=== PATIENT | female | born 1995 | race Caucasian/White ===

== ENCOUNTER 2018-01-09 20:36 | Emergency (ER) | payer OTHER ==
[2018-01-09] MEDS ORDERED: Mupirocin 2% OINT* TUBE TOPICAL ONE (22:06)
[2018-01-09] MEDS ORDERED: Cephalexin CAP* 500 MG PO ONE (22:06)
--- NOTE | 2018-01-09 22:13 | UC ---
Respiratory Complaint HPI - HPI Summary HPI Summary: 10 days of head congestion, cough, nasal drainage. No sore throat, nausea/ vomiting. No fever. Today noticed a bump on the tip of her nose with surrounding redness of the skin. Mildly tender. Not itchy. - History of Current Complaint Chief Complaint: IVANkin Stated Complaint: CONGESTION, NOSE COMPLAINT Time Seen by Provider: 01/09/18 21:54 Hx Obtained From: Patient, Family/[employer] - MOM Hx Last Menstrual Period: 2 weeks Onset/Duration: Gradual Onset, Lasting Days, Still Present Timing: Constant Severity Initially: Moderate Severity Currently: Moderate Pain Intensity: 2 Pain Scale Used: 0-10 Numeric Character: Cough: Nonproductive Aggravating Factors: Nothing Alleviating Factors: Nothing Associated Signs And Symptoms: Positive: URI, Nasal Congestion. Negative: Dyspnea, Fever, Chills - Allergies/Home Medications Allergies/Adverse Reactions: Allergies Allergy/AdvReac Type Severity Reaction Status Date / Time amoxicillin Allergy Unknown Verified 01/09/18 21:29 Reaction Details [place] And Derivatives Allergy Fever Verified 01/09/18 21:29 Home Medications: Home Medications Ibuprofen TAB* [Motrin TAB* 600 MG] 600 mg PO Q6H PRN 01/09/18 [History Confirmed 01/09/18] O C 1 tab PO QPM 01/09/18 [History Confirmed 01/09/18] PMH/Surg Hx/FS Hx/Imm Hx Previously Healthy: Yes - Surgical History Surgical History: None - Family History Known Family History: Negative: Hypertension - Social History Alcohol Use: Occasionally Substance Use Type: None Smoking Status (MU): Former Smoker Review of Systems Constitutional: Negative Skin: Rash ENT: Nasal Discharge Respiratory: Cough Cardiovascular: Negative Gastrointestinal: Negative All Other Systems Reviewed And Are Negative: Yes Physical Exam Triage Information Reviewed: Yes Appearance: Well-Appearing, No Pain Distress, Well-Nourished Vital Signs: Initial Vital Signs Temp 97.5 F 01/09/18 21:19 Pulse 60 01/09/18 21:19 Resp 22 01/09/18 21:19 BP 137/91 01/09/18 21:19 Pulse Ox 100 01/09/18 21:19 Vital Signs Reviewed: Yes Eyes: Positive: Conjunctiva Clear ENT: Positive: Hearing grossly normal, Pharynx normal, TMs normal Neck: Positive: Supple, Nontender, No Lymphadenopathy Respiratory Exam: Normal Cardiovascular Exam: Normal Abdomen Description: Positive: Soft Musculoskeletal: Positive: No Edema Neurological: Positive: Alert Psychological: Positive: Age Appropriate Behavior Skin: Positive: Other - TENDER RAISED BUMP TIP OF NOSE. ERYTHEMA COVERING WHOLE NOSE UC Diagnostic Evaluation - Laboratory O2 Sat by Pulse Oximetry: 100 Respiratory Course/Dx - Differential Dx/Diagnosis Provider Diagnoses: 1. ACUTE URI. 2. CELLULITIS - NOSE Discharge - Sign-Out/Discharge Documenting (check all that apply): Patient Departure All imaging exams completed and their final reports reviewed: No Studies - Discharge Plan Condition: Stable Disposition: HOME Prescriptions: Cephalexin CAP* [Keflex 500 CAP*] 1,000 mg PO BID #26 cap Patient Education Materials: Cellulitis (ED), Upper Respiratory Infection (ED) Referrals: No Primary Care Phys,NOPCP [Primary Care Provider] - Additional Instructions: YOUR SYMPTOMS MAY BE VIRALLY MEDIATED BUT GIVEN THE LENGTH OF TIME YOU HAVE BEEN ILL WE WILL COVER YOU WITH ANTIBIOTICS. IF YOU START THE MEDICINE BE SURE TO TAKE IT FOR THE FULL COURSE. REST, HYDRATE, OTC MEDS NEEDED. SEEK FOLLOW- UP WITH YOUR PCP IF YOU ARE NOT IMPROVING OVER THE NEXT 1-2 WEEKS. YOUR APPEAR TO HAVE A SKIN INFECTION/INFLAMMATORY REACTION ON YOUR NOSE. THE ANTIBIOTIC WILL HOPEFULLY HELP WITH THIS TOO. FOLLOW-UP WITH DERM IF NOT IMPROVING OVER THE NEXT [address] D[address]Y IN [place] DR. LIZBETH SIMMONS [facility], [facility] [address]; [address] [place] [address] Dr. Sandy Prieto [place] Address: [address] [place] [address] [address] [place] [address] DR. SHARON MILES [facility] D[facility] [address] [place] [address] [place] [address] Eliz Pineda DERMATOLOGY IN [place] DR. LUCIANO ISAAC [phone] - Billing Disposition and Condition Condition: STABLE Disposition: Home
== END 2018-01-09 22:21 | disposition home or self-care (01) ==
LOC: UCCORT 20:36
DX: J06.9 Acute upper respiratory infection, unspecified (principal); J34.0 Abscess, furuncle and carbuncle of nose; Z88.0 Allergy status to penicillin; Z87.891 Personal history of nicotine dependence
CPT/HCPCS: 99203; A9270-GY; G0463